=== PATIENT | male | born 1950 | race Caucasian/White ===

== ENCOUNTER 2017-10-01 15:20 | Inpatient (IN) | payer MEDICARE ==
[~2017-10-01] VITALS: Ht 180.3 cm; Wt 115.7 kg
[~2017-10-01 15:20] MED LIST: ACTOS30 MG PO; ALTACE5 M1 PO; ASPIRIN LOW DOS81 M1 PO; ATORVASTATIN CA10 MG PO; BRILINTA90 MG PO; CARAFATE1 GM/10 ML PO; CINNAMON500 MG PO; FISH OIL1 CAP PO; GLUCOVANC1 PO; METFORMIN500 MG PO; MOBIC15 MG PO; MULTI PO; MULTI VIT PO; OMEPRAZOLE20 M2 PO; PANTOPRAZOLE SO40 MG PO; PIOGLITAZONE HC30 MG PO; VITAMIN E400 UNIT PO; ZPAK PO; [UNRECOGNIZED DRUG - OTHER] PO
[2017-10-05] VITALS (7 sets, daily range): BP systolic 145–188; BP diastolic 80–116
[2017-10-05 10:44] LABS: HEMATOCRIT 39.9 % (39.0-50.0); HEMOGLOBIN 12.8 g/dl (14.0-18.0); IMMATURE GRANULOCYTES 0.4 % (0.0-1.0); MEAN CELL VOLUME 84.9 fL CALC (80.0-100.0); MEAN CORPUSCULAR HGB 27.2 pG CALC (26.0-32.0); MEAN CORPUSCULAR HGB CONC 32.1 g/L CALC (32.0-36.0); NEUT# 3.4 thou/uL (1.82-7.42); RED BLOOD COUNT 4.7 mill/uL (4.70-6.10); RED CELL DISTRI WIDTH 17.2 % (11.5-15.5)
[2017-10-05 11:04] LABS: ACT PARTIAL THROMBO TIME 23.8 SECONDS (20.0-32.5); PROTHROMBIN TIME 10.6 SECONDS (9.0-12.5)
[2017-10-05 11:06] LABS: ANION GAP 16 (6-22 (CALC)); BUN 14 mg/dL (8-23); BUN/CREATININE RATIO 14 (12-20 (CALC)); CARBON DIOXIDE 21 mmol/l (22-30); CHLORIDE 105 mmol/l (95-108); GFR > 60 ML/MIN (>=60 (CALC)); GFR FOR AFR.AMER. > 60 ML/MIN (>=60 (CALC)); POTASSIUM 4.7 mmol/l (3.5-5.1); SODIUM 138 mmol/l (137-146)
[2017-10-06] VITALS (7 sets, daily range): BP systolic 102–159; BP diastolic 65–92
[2017-10-06 05:32] LABS: ALKALINE PHOSPHATASE 69 u/l (38-126); ANION GAP 16 (6-22 (CALC)); BILIRUBIN, TOTAL 0.5 mg/dL (0.0-1.4); BUN 9 mg/dL (8-23); BUN/CREATININE RATIO 9 (12-20 (CALC)); CARBON DIOXIDE 23 mmol/l (22-30); CHLORIDE 103 mmol/l (95-108); GFR > 60 ML/MIN (>=60 (CALC)); GFR FOR AFR.AMER. > 60 ML/MIN (>=60 (CALC)); POTASSIUM 4.6 mmol/l (3.5-5.1); SGOT/AST 23 u/l (19-48); SGPT/ALT 44 u/l (11-66); SODIUM 137 mmol/l (137-146); TOTAL PROTEIN 6.2 g/dL (6.3-8.2)
[2017-10-06 05:53] LABS: HEMATOCRIT 38.3 % (39.0-50.0); HEMOGLOBIN 12.1 g/dl (14.0-18.0); IMMATURE GRANULOCYTES 1.9 % (0.0-1.0); MEAN CELL VOLUME 87.8 fL CALC (80.0-100.0); MEAN CORPUSCULAR HGB 27.8 pG CALC (26.0-32.0); MEAN CORPUSCULAR HGB CONC 31.6 g/L CALC (32.0-36.0); NEUT# 9.28 thou/uL (1.82-7.42); RED BLOOD COUNT 4.36 mill/uL (4.70-6.10); RED CELL DISTRI WIDTH 17.9 % (11.5-15.5)
[2017-10-06 09:28] LABS: HEMOGLOBIN 11.8 g/dl (14.0-18.0); IMMATURE GRANULOCYTES 0.3 % (0.0-1.0); MEAN CELL VOLUME 88.6 fL CALC (80.0-100.0); MEAN CORPUSCULAR HGB 27.5 pG CALC (26.0-32.0); MEAN CORPUSCULAR HGB CONC 31.1 g/L CALC (32.0-36.0); NEUT# 9.73 thou/uL (1.82-7.42); RED BLOOD COUNT 4.29 mill/uL (4.70-6.10); RED CELL DISTRI WIDTH 17.9 % (11.5-15.5)
[2017-10-07 04:01] VITALS: BP 105/70
[2017-10-07 05:35] LABS: HEMATOCRIT 34.8 % (39.0-50.0); IMMATURE GRANULOCYTES 0.6 % (0.0-1.0); MEAN CELL VOLUME 88.1 fL CALC (80.0-100.0); MEAN CORPUSCULAR HGB 27.8 pG CALC (26.0-32.0); MEAN CORPUSCULAR HGB CONC 31.6 g/L CALC (32.0-36.0); NEUT# 8.25 thou/uL (1.82-7.42); RED BLOOD COUNT 3.95 mill/uL (4.70-6.10); RED CELL DISTRI WIDTH 17.9 % (11.5-15.5)
[2017-10-07 06:02] LABS: ANION GAP 14 (6-22 (CALC)); BUN 11 mg/dL (8-23); BUN/CREATININE RATIO 9 (12-20 (CALC)); CARBON DIOXIDE 25 mmol/l (22-30); CHLORIDE 99 mmol/l (95-108); CREATININE 1.2 mg/dL (0.7-1.3); GFR > 60 ML/MIN (>=60 (CALC)); GFR FOR AFR.AMER. > 60 ML/MIN (>=60 (CALC)); POTASSIUM 4.2 mmol/l (3.5-5.1); SODIUM 134 mmol/l (137-146)
[2017-10-07 07:31] VITALS: BP 100/63
[2017-10-07 09:07] LABS: HEMATOCRIT 33.7 % (39.0-50.0); HEMOGLOBIN 10.5 g/dl (14.0-18.0); IMMATURE GRANULOCYTES 0.3 % (0.0-1.0); MEAN CELL VOLUME 88.9 fL CALC (80.0-100.0); MEAN CORPUSCULAR HGB 27.7 pG CALC (26.0-32.0); MEAN CORPUSCULAR HGB CONC 31.2 g/L CALC (32.0-36.0); NEUT# 7.83 thou/uL (1.82-7.42); RED BLOOD COUNT 3.79 mill/uL (4.70-6.10); RED CELL DISTRI WIDTH 17.9 % (11.5-15.5)
[2017-10-07 15:38] VITALS: BP 102/74
[2017-10-07 19:00] VITALS: BP 105/72
[2017-10-08 05:10] VITALS: BP 95/62
[2017-10-08 05:43] LABS: HEMATOCRIT 31.6 % (39.0-50.0); HEMOGLOBIN 9.9 g/dl (14.0-18.0); IMMATURE GRANULOCYTES 0.3 % (0.0-1.0); MEAN CORPUSCULAR HGB 27.6 pG CALC (26.0-32.0); MEAN CORPUSCULAR HGB CONC 31.3 g/L CALC (32.0-36.0); NEUT# 7.38 thou/uL (1.82-7.42); RED BLOOD COUNT 3.59 mill/uL (4.70-6.10); RED CELL DISTRI WIDTH 17.6 % (11.5-15.5)
[2017-10-08 05:54] LABS: ANION GAP 15 (6-22 (CALC)); BUN 18 mg/dL (8-23); BUN/CREATININE RATIO 13 (12-20 (CALC)); CARBON DIOXIDE 25 mmol/l (22-30); CHLORIDE 98 mmol/l (95-108); CREATININE 1.4 mg/dL (0.7-1.3); GFR 51 ML/MIN (>=60 (CALC)); GFR FOR AFR.AMER. > 60 ML/MIN (>=60 (CALC)); POTASSIUM 4.3 mmol/l (3.5-5.1); SODIUM 133 mmol/l (137-146)
[2017-10-08 08:47] VITALS: BP 101/65
[2017-10-08 11:00] VITALS: BP 114/75
[2017-10-08] MEDS ORDERED: OXYCOD/APAP1 TA4 PO (11:26)
[2017-10-08] MEDS ORDERED: SURFAK240 MG/CAP PO (11:27)
[2017-10-08] MEDS ORDERED: TEMAZEPAM15 MG PO (11:27)
[2017-10-08] MEDS ORDERED: METFORMIN850 MG PO (11:28)
[2017-10-08 11:38] VITALS: BP 114/75
[2017-10-08 11:45] VITALS: BP 114/75
== END 2017-10-08 14:20 | DRG 470 ==
LOC: MS2 10-05 08:30 → ICU 10-05 09:57 → MS2 10-05 09:57 → ICU 10-05 13:00 → MS2 10-05 13:15
PROVIDERS: ADMIT Orthopaedic Surgery; ATTEND Internal Medicine Geriatric Medicine
PROC: 0SRD0J9 Replacement of Left Knee Joint with Synthetic Substitute, Cemented, Open Approach (ICD-10-PCS; principal; 2017-10-05)
DX: M17.12 Unilateral primary osteoarthritis, left knee (principal); E11.9 Type 2 diabetes mellitus without complications; I10 Essential (primary) hypertension; E78.5 Hyperlipidemia, unspecified; N40.0 Benign prostatic hyperplasia without lower urinary tract symptoms

== ENCOUNTER 2017-11-26 06:01 | Day surgery (SDC) | payer MEDICARE ==
[~2017-11-26] VITALS: Ht 180.3 cm; Wt 113.4 kg
[~2017-11-26 06:01] MED LIST changes: +METFORMIN850 MG PO; +OXYCOD/APAP1 TA4 PO; +SURFAK240 MG/CAP PO; +TEMAZEPAM15 MG PO
[2017-11-26] MEDS ORDERED: PERCOCET 10/31 COMBO PO (08:45)
[2017-11-26 09:56] VITALS: BP 141/76
== END 2017-11-26 10:00 | disposition home or self-care (01) ==
LOC: ORM 06:01
PROVIDERS: ATTEND Orthopaedic Surgery
PROC: 0SNDXZZ Release Left Knee Joint, External Approach (ICD-10-PCS; principal; 2017-11-26)
PROC: 3E0U33Z Introduction of Anti-inflammatory into Joints, Percutaneous Approach (ICD-10-PCS; 2017-11-26)
PROC: 3E0U3BZ Introduction of Anesthetic Agent into Joints, Percutaneous Approach (ICD-10-PCS; 2017-11-26)
DX: T84.82XA Fibrosis due to internal orthopedic prosthetic devices, implants and grafts, initial encounter (principal); E11.9 Type 2 diabetes mellitus without complications; I10 Essential (primary) hypertension; Y83.1 Surgical operation with implant of artificial internal device as the cause of abnormal reaction of the patient, or of later complication, without mention of misadventure at the time of the procedure; Z96.652 Presence of left artificial knee joint